=== PATIENT | female | born 2000 | race Two or more races ===

== ENCOUNTER 2025-06-29 09:06 | Outpatient (CLI) | payer OTHER | END 2025-06-29 09:07 | disposition home or self-care (01) | LOC: PRENATAL 09:06 | PROVIDERS: ATTEND Obstetrics & Gynecology Maternal & Fetal Medicine | DX: O44.02 Complete placenta previa NOS or without hemorrhage, second trimester (principal); Z3A.19 19 weeks gestation of pregnancy ==

== ENCOUNTER 2025-07-12 13:34 | Outpatient (CLI) | payer OTHER ==
[~2025-07-12] VITALS: Ht 165.1 cm; Wt 61.2 kg
[2025-07-12 13:02] VITALS: BP 111/65
[2025-07-12] MEDS ORDERED: PRENATA CHEWAB1 EACH PO (13:42)
[2025-07-12] MEDS ORDERED: RINGERS SOLUTION,LACTATED 1,000 ML IV SCH (13:45)
[2025-07-12 14:39] LABS: URINE APPEARANCE Cloudy; URINE BILIRRUBIN Negative (NEGATIVE); URINE BLOOD Negative; URINE COLOR Yellow; URINE GLUCOSE Negative (NEGATIVE); URINE KETONE Negative (NEGATIVE); URINE LEUKOCYTE Small; URINE NITRATE Positive; URINE PROTEIN Negative (NEGATIVE); URINE UROBILINOGEN 1.0 E.U./dl
[2025-07-12 14:41] LABS: BASO % 0.7 % (0.1-1.2); EOS # 0.27 (0.04-0.54); EOS % 2.6 % (0.7-7.0); LYMPH # 2.36 (1.18-3.74); LYMPH % 22.7 % (19.3-53.1); MEAN PLATELET VOLUME 10.70 fl (9.4-12.4); MONO # 0.63 (0.24-0.82); MONO % 6.1 % (4.7-12.5); NEUT # 6.88 (1.56-6.13); NEUT % 66.1 % (34.0-71.1); RED CELL DISTRIBUTION WIDTH 13.0 % (11.6-14.4)
[2025-07-12 14:42] LABS: URINE EPITHELIAL CELLS 20.6 uL (0.0-38.8); URINE RBC 19.9 uL (0.0-20.8); URINE WBC 176.2 uL (0.0-23.2)
[2025-07-12 15:02] LABS: URINE BACTERIA > 9821.5 uL (0.0-1933); URINE CAST 0.14 uL (0.0-1.40)
[2025-07-12 15:38] VITALS: BP 118/69
[2025-07-12] MEDS ORDERED: CEFTRIAXONE SODIUM 1,000 MG VIAL IV SCH (18:00)
[2025-07-12 19:40] VITALS: BP 107/60
[2025-07-12 23:14] VITALS: BP 95/60
[2025-07-13 03:22] VITALS: BP 95/60
[2025-07-13] MEDS ORDERED: CEPHALEXIN500 MG PO (06:39)
[2025-07-13 06:49] VITALS: BP 98/59; O2SAT 98
[2025-07-13 08:12] VITALS: BP 98/59
== END 2025-07-13 08:12 | disposition home or self-care (01) ==
LOC: OBS/DEL 13:34
PROVIDERS: ATTEND Obstetrics & Gynecology
DX: O36.8120 Decreased fetal movements, second trimester, not applicable or unspecified (principal); Z3A.22 22 weeks gestation of pregnancy

== ENCOUNTER → 2025-07-12 | Emergency (ER) | payer OTHER ==
[~2025-07-12] VITALS: Ht 165.1 cm; Wt 61.2 kg
[~2025-07-12] MED LIST: CEPHALEXIN500 MG PO; PEPCID AC20 MG PO; PRENATA CHEWAB1 EACH PO; ZOFRAN8 MG PO
== END | disposition still patient (30) ==
LOC: ER 11:52
DX: O26.892 Other specified pregnancy related conditions, second trimester (principal); Z3A.21 21 weeks gestation of pregnancy